=== PATIENT | female | born 1970 | race Caucasian/White ===

== ENCOUNTER 2020-01-10 06:50 | Emergency (ER) | payer OTHER, BC ==
[~2020-01-10] VITALS: Ht 165.1 cm; Wt 70.0 kg
[~2020-01-10 06:50] MED LIST: DICLOFENAC SODI75 MG PO; TRAMADOL HCL50 MG PO
[2020-01-10] MEDS ORDERED: VENTOLIN HFA18 GM INH (07:06)
== END 2020-01-10 08:04 | disposition home or self-care (01) ==
LOC: ED 06:50
DX: S61.512A Laceration without foreign body of left wrist, initial encounter (principal); J45.909 Unspecified asthma, uncomplicated; F17.200 Nicotine dependence, unspecified, uncomplicated; Z88.0 Allergy status to penicillin; Z88.5 Allergy status to narcotic agent; W26.0XXA Contact with knife, initial encounter; Y99.0 Civilian activity done for income or pay
CPT/HCPCS: 12031; 90471; 90714; 99282-25

== ENCOUNTER 2020-12-30 09:02 | Day surgery (SDC) | payer BC, OTHER ==
[~2020-12-30 09:02] MED LIST changes: +VENTOLIN HFA18 GM INH
--- NOTE | 2020-12-30 09:32 | NUR ---
both nares swabbed for covid-19 without complication. pt turned abruptly away from me while swabbing right nare. sample taken to lab.
[2020-12-30] MEDS ORDERED: FLOVENT DISKU100 MCG INH (09:44)
[2020-12-30] MEDS ORDERED: EXCEDRIN EXTRA1 EAC1 PO (09:44)
[2020-12-30] MEDS ORDERED: TYLENOL325 MG PO (09:45)
[2020-12-30] MEDS ORDERED: IBUPROFEN200 M1 PO (09:45)
--- NOTE | 2020-12-30 12:21 | NUR ---
12/30/20 1221 Elaina Welsh 1130 PT ARRIVED IN PACU AWAKE AND PULLING AT GOWN. 1135 PT ASKING TO PUT BOXERS ON. HELPED PT PUT HER OWN BOXERS ON. 1140 SITTING UP IN BED TALKING TO STAFF. 1145 SIPPING ON WATER. DC INSTRUCTIONS GIVEN. ALL QUESTIONS ANSWERED. 1200 LEFT VIA W/C TO HOME.
--- NOTE | 2021-01-03 12:39 | OR ---
[facility] [address], [place] [address] Signed DATE OF OPERATION: 12/30/2020 SURGEON: Nora Ch MD PREOPERATIVE DIAGNOSIS: Colon screening. POSTOPERATIVE DIAGNOSIS: Two small polyps, sigmoid and rectum, uncertain histology. PROCEDURE: Total colonoscopy to cecum with cold morcellation polypectomy x2. ANESTHESIA: Intravenous sedation with propofol infusion; Daisy Zarco CRNA. INDICATION: This 50-year-old white woman is a patient of Dr. Miriam Garcia and is referred for screening colonoscopy. She has had no prior colonoscopy in the past and has no symptoms of bleeding, diarrhea or constipation and no family history of colon cancer. She does smoke on a daily basis and drinks a six-pack of beer nightly and on that basis, other medical issues including probable COPD and possible sleep apnea, propofol infusional sedation is indicated. The risks of bleeding, infection, and perforation related to colonoscopy was reviewed with her. She understands and wished to proceed. FINDINGS: The prep was good. Complete colonoscopy was undertaken of the cecum. She had two what appeared to be small polyps, one in the sigmoid, the other in the rectum, both excised with cold morcellation technique. These may represent hyperplasia rather than adenomatous polyp. She also had some diverticula of the sigmoid colon. DESCRIPTION OF PROCEDURE: The patient was brought to the surgical endoscopy suite, placed in lateral decubitus position, given intravenous sedation to the point of slurred speech and nystagmus. Digital rectal examination was normal. Full cardiopulmonary monitoring was maintained. An Olympus video colonoscope was passed in the rectum and manipulated into the sigmoid where diverticula were seen. This was manifest mostly as deep sulci as well as small diverticula. The scope was ultimately advanced beyond this to the cecum, the ileocecal valve and appendiceal orifice were normal. Scope was withdrawn from that point and Electronically Signed By: NORA CH MD 01/03/21 1239 PATIENT NAME: SHAWN BROOKE OPERATIVE REPORT DATE OF : 68 REPORT #: [id number] PHYSICIAN: NORA CH MD PCP: MIRIAM GARCIA MD REPORT IS CONFIDENTIAL AND NOT TO BE RELEASED WITHOUT AUTHORIZATION [facility] [address], [place] [address] Signed examination throughout showed no sign of abnormality until the sigmoid where a small polyp was noted, this may be adenomatous or hyperplastic, it was unclear. The scope was further withdrawn and a small polyp was noted in the rectum, similarly excised. Retroflexed view was normal. Scope was removed. The patient was taken to the recovery room in good condition. CONCLUDING DIAGNOSIS: Two polyps probably adenomatous, uncertain histology at this time. PLAN: Recommend a repeat colonoscopy in 5 years if polyps are adenomatous, if they are hyperplastic in 10 years sooner if symptoms should occur. She will return to the ongoing care of Dr. Garcia otherwise. MD CANDACE Cruz/GORDY /[id number] cc: Miriam Garcia MD Copies: ~ Electronically Signed By: NORA CH MD 01/03/21 1239 PATIENT NAME: EDWARDOSHAWN LOVE OPERATIVE REPORT DATE OF : 68 REPORT #: [id number] PHYSICIAN: NORA CH MD PCP: MIRIAM GARCIA MD REPORT IS CONFIDENTIAL AND NOT TO BE RELEASED WITHOUT AUTHORIZATION
--- NOTE | 2021-01-05 13:54 | PATH ---
[facility] [address] [facility] [place] [place] [address] Signed SPECIMEN(S): A SIGMOID POLYP SPECIMEN(S): B RECTAL POLYP SPECIMEN SOURCE: A. SIGMOID POLYP B. RECTAL POLYP CLINICAL HISTORY: Screening colonoscopy. Post: Colon polyps. MICROSCOPIC DESCRIPTION: Histologic sections of all submitted blocks are examined by light microscopy. These findings, together with the gross examination, support the pathologic diagnosis. FINAL PATHOLOGIC DIAGNOSIS: A. Colon, sigmoid, polypectomy: - Hyperplastic polyp. B. Rectum, polypectomy: - Colonic mucosa with no significant pathologic changes. BRP:cml:C2NR GROSS DESCRIPTION: Two specimens are received in two containers labeled with "AB." A. The specimen, labeled "AB, 1," and designated on the requisition "sigmoid polypectomy," is received in formalin and consists of two fragments of pink-flores tissue (0.2 and 0.3 cm in greatest dimension). The specimen is submitted entirely in cassette (A1). B. The specimen, labeled "AB, 2," and designated on the requisition "rectum polypectomy," is received in formalin and consists of one fragment of pink-flores tissue (0.3 cm in greatest dimension). The specimen is submitted entirely in cassette (B1). AC (under the direct supervision of a pathologist) The Gross Description was prepared using a voice recognition system. The report was reviewed for accuracy; however, sound-alike word errors, addition and/or deletions may occur. If there is any question about this report, please contact Client Services. PERFORMING LABORATORY: The technical component was performed by [facility], [address] [place] [id number] (Fence Installer Foreman: Natalia Webb MD; CLIA# [id number]). Professional interpretation was performed by [facility] PATIENT NAME: NATALIA BROOKE PATHOLOGY DATE OF : 68 REPORT #: [id number] PHYSICIAN: SMITHA PATHOLOGY PCP: LESTER MCCORD MD REPORT IS CONFIDENTIAL AND NOT TO BE RELEASED WITHOUT AUTHORIZATION [facility] [address] [place], [place] [address] Signed [facility], [address] [place] [id number] (CLIA# [id number]). Diagnostician: Mor Sue MD Pathologist Electronically Signed 01/05/2021 Copies: ~ PATIENT NAME: NATALIA BROOKE PATHOLOGY DATE OF : 68 REPORT #: [id number] PHYSICIAN: SMITHA PATHOLOGY PCP: LESTER MCCORD MD REPORT IS CONFIDENTIAL AND NOT TO BE RELEASED WITHOUT AUTHORIZATION
== END 2020-12-30 12:00 | disposition home or self-care (01) ==
LOC: OPS 09:02 → DS 09:02 → OPS 09:25 → DS 11:00 → OPS 12:00
PROVIDERS: ATTEND Surgery
PROC: 0DBN8ZX Excision of Sigmoid Colon, Via Natural or Artificial Opening Endoscopic, Diagnostic (ICD-10-PCS; 2020-12-30)
PROC: 0DBP8ZX Excision of Rectum, Via Natural or Artificial Opening Endoscopic, Diagnostic (ICD-10-PCS; principal; 2020-12-30 09:25)
DX: Z12.11 Encounter for screening for malignant neoplasm of colon (principal); K63.5 Polyp of colon; K62.1 Rectal polyp; Z20.822 Contact with and (suspected) exposure to COVID-19; F17.210 Nicotine dependence, cigarettes, uncomplicated; J68.3 Other acute and subacute respiratory conditions due to chemicals, gases, fumes and vapors; Z72.89 Other problems related to lifestyle; R05.3 Chronic cough; Z88.0 Allergy status to penicillin; Z88.5 Allergy status to narcotic agent
CPT/HCPCS: 80053; 84703; 85025; C9803; J2001; J2704; J7121; U0003

== ENCOUNTER 2022-07-09 11:46 | Emergency (ER) | payer BC, OTHER ==
[~2022-07-09] VITALS: Ht 165.1 cm; Wt 76.2 kg
[~2022-07-09 11:46] MED LIST changes: +EXCEDRIN EXTRA1 EAC1 PO; +FLOVENT DISKU100 MCG INH; +IBUPROFEN200 M1 PO; +TYLENOL325 MG PO
[2022-07-09] MEDS ORDERED: TRAMADOL HCL50 MG PO (13:32)
[2022-07-09 13:43] VITALS: BP 138/87
== END 2022-07-09 13:43 | disposition home or self-care (01) ==
LOC: ED 11:46
DX: R10.31 Right lower quadrant pain (principal); J45.909 Unspecified asthma, uncomplicated; F17.200 Nicotine dependence, unspecified, uncomplicated; Z88.5 Allergy status to narcotic agent; Z88.0 Allergy status to penicillin; Z79.899 Other long term (current) drug therapy; Z79.82 Long term (current) use of aspirin
CPT/HCPCS: 36415; 74177; 80053; 81003; 83690; 85025; 96375; 99284-25; J2405; J3010; J7030; Q9967